=== PATIENT | female | born 1990 | race Caucasian/White ===

== ENCOUNTER 2021-08-13 14:56 | Emergency (ER) | payer OTHER ==
[2021-08-13] MEDS ORDERED: ACETAMINOPHEN 1000 MG/100 ML BAG IVPB ONE (15:14)
[2021-08-13] MEDS ORDERED: METOCLOPRAMIDE HCL INJECTION 10 MG/2 ML VIAL IVPUSH ONE (15:14)
[2021-08-13] MEDS ORDERED: SODIUM CHLORIDE 0.9% 1000 ML INFUS.BAG IV ONE (15:14)
[2021-08-13] MEDS ORDERED: MECLIZINE HCL 25 MG TABLET (FP) PO ONE (15:15)
[2021-08-13 15:18] VITALS: BP 128/58; TEMP 98.5; BMI 26.2
[2021-08-13 15:22] VITALS: PULSE 77
[2021-08-13] MEDS ORDERED: METOCLOPRAMIDE HCL INJECTION 10 MG/2 ML VIAL ONE (15:28)
[2021-08-13] MEDS ORDERED: ACETAMINOPHEN INJECTION 100 ML IVPB ONE (15:28)
[2021-08-13] MEDS ORDERED: MECLIZINE HCL 25 MG TABLET (FP) ONE (15:28)
[2021-08-13] MEDS ORDERED: ACETAMINOPHEN 500 MG TABLET (FP) ONE (15:49)
[2021-08-13] MEDS ORDERED: METOCLOPRAMIDE HCL 10 MG TABLET (FP) PO ONE ×2 (15:49→16:07)
[2021-08-13] MEDS ORDERED: ACETAMINOPHEN 500 MG TABLET (FP) PO ONE (16:07)
[2021-08-13 16:23] LABS: HEMATOCRIT 41.9 % (32.4-45.2); HEMOGLOBIN 14.2 G/dL (10.7-15.3); MCH 26.9 pg (25.7-33.7); MCHC 33.8 g/dl (32.0-36.0); MEAN CELL VOLUME 79.7 fl (80-96); MEAN PLT VOLUME 7.6 fl (7.5-11.1); PLATELET COUNT 315.1 10^3/uL (134-434); RBC 5.26 10^6/uL (3.60-5.2); RDW 14.9 % (11.6-15.6); WHITE BLOOD COUNT 9.5 10^3/uL (4.0-10.8)
[2021-08-13 16:30] LABS: ALBUMIN 4.7 g/dl (3.4-5.0); BILIRUBIN,TOTAL 1.1 mg/dl (0.2-1); CALCIUM 9.7 mg/dl (8.5-10); CREATININE 0.5 mg/dl (0.55-1.3); TOT PROT 8.2 g/dl (6.4-8.2)
[2021-08-13 18:20] LABS: PLATELET ESTIMATE ADEQUATE
== END 2021-08-13 17:17 | disposition home or self-care (01) ==
LOC: FER 14:56
PROC: 3E033GC Introduction of Other Therapeutic Substance into Peripheral Vein, Percutaneous Approach (ICD-10-PCS; principal; 2021-08-13)
DX: R42 Dizziness and giddiness (principal)
CPT/HCPCS: 36415; 80053; 84703; 85025; 99284-25